=== PATIENT | male | born 1935 | race Caucasian/White ===

== ENCOUNTER 2024-09-27 22:45 | Emergency (ER) | payer MEDICARE, OTHER ==
[2024-09-27 22:51] LABS: BASOPHILS PERCENT AUTO 0.3 % (0.0-1.0); HEMATOCRIT 30.8 % (40.0-54.0); HEMOGLOBIN 9.8 g/dL (14.0-18.0); LYMPHOCYTES PERCENT AUTO 16.6 % (20.5-50.1); MEAN CORPUSCULAR HEMOGLOBIN 31.6 pg (27.0-34.0); MEAN CORPUSCULAR HGB CONC 31.8 g/dL (33.0-35.0); MEAN CORPUSCULAR VOLUME 99.4 fL (80-100); MONOCYTES PERCENT AUTO 6.7 % (2-8); NEUTROPHILS PERCENT AUTO 75.4 % (42.2-75.2); PLATELET COUNT,PLT 164 10^3/uL (150-450); WHITE BLOOD CELL COUNT,WBC 10.8 10^3/uL (5.0-10.0)
[2024-09-27 22:52] LABS: BASE EXCESS VENOUS -3.3 mmol/l ((-2)-(+3)); BICARBONATE,VENOUS 22 mmol/l (19-25); O2 DELIVERY DEVICE NON REBR MASK; O2 SATURATION VENOUS 47.3 % (60-80); PCO2 VENOUS 41 mmHg (41-51); PH,VENOUS 7.34 (7.31-7.41); PO2 VENOUS 32 mmHg (35-42)
[2024-09-27] MEDS: Sodium Chloride 0.9% 1,000 ML IV ONE (23:00)
[2024-09-27 23:08] LABS: ALANINE AMINOTRANSFERASE,ALT 18 U/L (16-63); ALBUMIN 2.3 g/dL (3.4-5.0); ALKALINE PHOSPHATASE 88 U/L (46-116); ASPARTATE AMNIOTRANSFERASE,AST 15 U/L (15-37); BILIRUBIN TOTAL 0.2 mg/dL (0.2-1.0); BLOOD UREA NITROGEN,BUN 17 mg/dL (7-18); BUN/CREATININE RATIO 15.5 (No establ ref range); CALCIUM 6.9 mg/dL (8.5-10.1); CARBON DIOXIDE,CO2 25 mmol/L (21-32); CHLORIDE,CL 111 mmol/L (98-107); GLUCOSE RANDOM 129 mg/dL (70-99); MAGNESIUM 1.3 mg/dL (1.8-2.4); SODIUM,NA 146 mmol/L (136-145)
[2024-09-27 23:10] LABS: A/G RATIO 0.85; C-REACTIVE PROTEIN < 0.50 ng/dL (<=0.50); ESTIMATED GFR 65 mL/min (>=60)
[2024-09-27] MEDS: Potassium Chloride 20 MEQ in Premix Bag 1 BAG IV ONE (23:26)
[2024-09-27] MEDS: Magnesium Sulf/Wat 2 GM/50 mL 2 GM in Premix Bag 1 BAG IV SCH (23:27)
[2024-09-27] MEDS: Norepinephrine Bit/D5W Premix 250 ML ONE (23:34)
== END 2024-09-28 02:00 ==
LOC: DL.ED 22:45
DX: R55 Syncope and collapse (principal); Z95.0 Presence of cardiac pacemaker
CPT/HCPCS: 36415; 71045; 80053; 82803; 83605; 83735; 83880; 84484; 85025; 85379; 86140; 93005; 93010; 96365; 96366; 96368; 99285; J3475; J3480; J7030